=== PATIENT | female | born 1980 | race Asian ===

== ENCOUNTER 2017-04-23 07:00 | Day surgery (SDC) | payer OTHER ==
[~2017-04-23] VITALS: Ht 152.4 cm; Wt 45.9 kg
[~2017-04-23 07:00] MED LIST: CANA1000R PR
[2017-04-23 08:33] VITALS: Ht 152.4 cm; Wt 45.9 kg
[2017-04-23 08:58] VITALS: BP 114/73; PULSE 62; RESP 18
--- NOTE | 2017-04-23 09:38 | OPR ---
Date/Time of Note Date/Time of Note DATE: 04/23/17 TIME: 09:36 Operative Report Preoperative Diagnosis Rectal bleeding Postoperative Diagnosis Proctitis, involvement of the rectum up to 10 cm, hemorrhoid Operation/Procedure Performed Colonoscopy with 2 biopsies from the rectum Normal rest of the colon and terminal ileum up to 6 feet Anesthesia Type: moderate sedation Estimated Blood Loss: none Specimens Colonic rectal biopsies 2 bites Grafts/Implants: none Complications: no ELMER SHERMAN MD Apr 23, 2017 09:38
[2017-04-23 10:00] VITALS: BP 94/65; RESP 18
--- NOTE | 2017-04-23 10:13 | GILP ---
DATE OF PROCEDURE: 04/23/2017 PROCEDURE PERFORMED: Colonoscopy with biopsy. INDICATIONS FOR PROCEDURE: A 37-year-old female with a history of ulcerative proctitis, undergoing this procedure for persistent rectal bleeding and diarrhea. The purpose is to evaluate the colon and find out the extension of her colitis. Her last colonoscopy was almost 3 years ago. The risks of the procedure, related complications, and anesthetic risks, alternatives discussed. Informed consent was obtained. DESCRIPTION OF PROCEDURE: The patient was brought to the GI lab, sedated with Versed at 3.5 mg, fentanyl 75 mg optimal sedation. Scope was passed with much ease into the rectum. She had purulent material, loss of vascularity and hyperemic mucosa with erosion up to 10 cm consistent endoscopically with a diagnosis of ulcerative proctitis. Beyond 10 cm, the mucosa was totally normal all the way into terminal ileum. Terminal ileum was normal up to 6 feet. IC valve was incompetent and appendiceal orifice also examined while coming out mucosa thoroughly inspected. The rest of the colon was normal. Two biopsies obtained from the rectum to confirm the diagnosis. Scope was removed with good patient tolerance. IMPRESSION: 1. Ulcerative proctitis, up to 10 cm of moderate degree. 2. Normal rest of the colon. 3. Clarity and cleanliness were good. 4. Caput of the cecum was totally normal. 5. Terminal ileum up to 6 feet was normal. PLAN: To review histopathology. Continue with the [place] and might need a sitz bath for her hemorrhoids. It might be a contributing factor for her rectal bleeding. Dictated By: Rah Short MD /[email or web address]/vu /Document#: [id number] CC: Rah Short MD; Primary MD;*End*
[2017-04-23] MEDS ORDERED: MIDAZOLAM 1 MG/ML 2 ML INJ ONE ×2 (12:10)
[2017-04-23] MEDS ORDERED: FENTAnyl 50 MCG/ML VIAL ONE (12:11)
== END 2017-04-23 12:54 | disposition home or self-care (01) ==
LOC: GIL 07:00
PROVIDERS: ATTEND Internal Medicine Gastroenterology
DX: K51.90 Ulcerative colitis, unspecified, without complications (principal)
CPT/HCPCS: 45380; 84703; 88305; J2250; J3010; Z7610